=== PATIENT | female | born 1955 | race Caucasian/White ===

== ENCOUNTER 2018-03-25 16:52 | Emergency (ER) | payer OTHER ==
[~2018-03-25] VITALS: Ht 149.9 cm; Wt 108.9 kg
[2018-03-25] MEDS ORDERED: LIPITOR40 MG PO (17:03)
[2018-03-25] MEDS ORDERED: GLIPIZIDE ER10 MG PO (17:03)
== END 2018-03-25 19:26 | disposition home or self-care (01) ==
LOC: ER 16:52
DX: N30.80 Other cystitis without hematuria (principal); N39.0 Urinary tract infection, site not specified